=== PATIENT | female | born 1950 | race Caucasian/White ===

== ENCOUNTER → 2016-07-10 | Day surgery (SDC) | payer MEDICARE, OTHER ==
[~2016-07-10] VITALS: Ht 172.7 cm; Wt 64.0 kg
[~2016-07-10] MED LIST: ACET500T68 PO; ASPI-482 PO; ATOR40TA59 PO; BALANCED SALT IRRIG OPHTH SOLN 15 ML BOTTLE. ONE; CHONDROIT-SOD-HYALURONATE KIT. ONE; CIPROFLOXACIN 0.3% OPHTH SOLUTION 2.5ML BOTTLE. OD ONE; DIAZ5TAB PO; DILT360C PO; DOCU-27 PO; EPINEPHRINE 0.2 MG in BALANCED SALT IRR SOLN (BAG) 500 ML IO ONE; FENTANYL PF 100 MCG/2 ML VIAL. IV PRN; FERR325T3 PO; FLUT1DIS3 IH; FURO20TA3 PO; HYDROMORPHONE 2 MG/ML VIAL. IV PRN; ISOS60TA2 PO; IV RINGERS,LACTATED 1000ML 1,000 ML IV SCH; LIDOCAINE 1% 1 ML SYRINGE. ID PRN; LIDOCAINE 1% PF 2 ML VIAL. ONE; LIDOCAINE 2% 100 MG/5 ML DISP.SYRIN. ONE; LIDOCAINE 2% TOPICAL JELLY 30GM TUBE. TP ONE; LORA0.5T PO; LOSA25TA4 PO; MIDAZOLAM HCL 2 MG/2 ML VIAL. ONE; MONT10TA9 PO; MORP60TA37 PO; MORPHINE SULFATE 2 MG/ML DISP.SYRIN. IV PRN; NEO/POLYMYX/DEXAMETH OPHTH OINTMENT 3.5GM TUBE. ONE; NITR0.4T6 SL; ONDANSETRON PF 4 MG/2 ML VIAL. IV PRN; OXYC10TA PO; PANT40TA3 PO; PRAS10TA4 PO; PRED-220 PO; PREG75CA PO; PROAIR RESPICL90 MCG IH; PROCHLORPERAZINE 10 MG/2 ML VIAL. IV PRN; PROPARACAINE 0.5% OPHTH SOLUTION 15ML BOTTLE. OD ONE; PROPOFOL 0 ML IV ONE; PROPOFOL 20 ML IV ONE; RANO10002 PO; SUCR1TAB29 PO
[2016-07-10] MEDS: CYCLOPENTOLATE 1% OPTH SOLUTION 2ML BOTTLE. OD SCH ×3 (11:53→12:03)
[2016-07-10] MEDS: PHENYLEPHRINE 10% OPHTH SOLUTION 5ML BOTTLE. OD SCH ×3 (11:53→12:03)
[2016-07-10] MEDS: LIDOCAINE 2% JELLY 6ML IN APPLICATOR. MM PRN ×2 (12:01→12:20)
[2016-07-10 13:43] VITALS: BP 198/98
--- NOTE | 2016-07-10 18:51 | OP ---
DATE OF SURGERY: 07/10/2016 PREOPERATIVE DIAGNOSIS: Senile cataract, right eye. POSTOPERATIVE DIAGNOSIS: Senile cataract, right eye. PROCEDURE: Phacoemulsification with posterior chamber lens implant, right eye. ANESTHESIA: Topical with MAC. DESCRIPTION OF PROCEDURE: The patient's dilating drops and topical lidocaine were applied in the outpatient area and the [place] balloon cuff placed over the eye and inflated to 30 mmHg and allowed to act for about 20-30 minutes. The patient was then brought to the operating room and the right eye was prepped and draped in the usual sterile manner for an intraocular procedure. A paracentesis incision was made superior temporally and an injection of 1% nonpreserved lidocaine was made into the anterior chamber. This was followed by injection of Viscoat. The primary 2.4 mm incision was then made temporally. A bent needle and capsulorrhexis forceps were used to make the capsulorrhexis. The lens nucleus was then phacoemulsified without difficulty. The I/A handpiece was used to clean out the cortical material. Provisc was then injected into the anterior chamber and the bag was insufflated. A +20.0 SN60 posterior chamber lens implant was then placed into the bag without difficulty. The Provisc was then aspirated with the I/A handle. The eye was pressurized and the wound checked for leaks and there were none. The speculum and drape were removed and Maxitrol ointment applied to the eye, specifically into the conjunctiva sac. The eye was shielded and the patient taken to recovery room in satisfactory condition. There were no complications. I will see the patient back in my office in 3 days. I will touch bases with her by phone tomorrow. K CARLIN BROWER MD DR: MERVAT/cherelle JOB#: [id number] / [id number]
== END | disposition home or self-care (01) ==
LOC: SURG 11:13
PROVIDERS: ATTEND Ophthalmology
DX: H25.89 Other age-related cataract (principal); E78.00 Pure hypercholesterolemia, unspecified; I10 Essential (primary) hypertension; K21.9 Gastro-esophageal reflux disease without esophagitis; J44.9 Chronic obstructive pulmonary disease, unspecified; M19.90 Unspecified osteoarthritis, unspecified site; F41.9 Anxiety disorder, unspecified; Z87.891 Personal history of nicotine dependence; Z87.39 Personal history of other diseases of the musculoskeletal system and connective tissue; Z90.710 Acquired absence of both cervix and uterus
CPT/HCPCS: 66984; C1780; J0171; J2250; J2704